=== PATIENT | female | born 1960 | race Caucasian/White ===

== ENCOUNTER → 2020-08-01 | Outpatient (CLI) | payer BC | LOC: KOH-I 14:00 | DX: F17.210 Nicotine dependence, cigarettes, uncomplicated (principal); R91.1 Solitary pulmonary nodule | CPT/HCPCS: 71271 ==

== ENCOUNTER → 2021-08-04 | Outpatient (CLI) | payer BC | LOC: KOH-I 07-28 10:30 | DX: F17.210 Nicotine dependence, cigarettes, uncomplicated (principal); R91.1 Solitary pulmonary nodule | CPT/HCPCS: 71271 ==